=== PATIENT | male | born 1990 | race Asian ===

== ENCOUNTER 2023-04-18 12:12 | Outpatient (REF) | payer OTHER, SELFPAY ==
[2023-04-20 11:30] LABS: Acrosom Defect 24.5 %; Appearance Normal; Container Type 50 mL Conical; Grade 2.5 (>=2.5); Midpiece Defect 22.5 %; Motile/Ejaculate 10.2 x10(6) (>=9.0); Motile/mL 3.4 x10(6) (>=6.0); Motility 47 % (>=40); Sperm/mL 7.2 x10(6) (>=15.0); Study Type Semen
== END 2023-04-18 12:13 | disposition home or self-care (01) ==
LOC: LBN 12:12
PROVIDERS: Visit Provider Obstetrics & Gynecology
DX: Z31.41 Encounter for fertility testing (principal)
CPT/HCPCS: 89240; 89310